=== PATIENT | male | born 1980 | race Caucasian/White ===

== ENCOUNTER 2021-03-10 18:42 | Inpatient (IN) | payer OTHER, SELFPAY ==
[2021-03-10] VITALS (13 sets, daily range): BP systolic 148–165; BP diastolic 89–98; PULSE 97–118; RESP 14–27; TEMP 36.9; O2SAT 97–100
--- NOTE | ~2021-03-10 | XR_ITS ---
EXAMINATION: XR chest 1V portable DATE: 03/13/2021 15:36 INDICATION: Shortness of breath. TECHNIQUE: A single frontal view of the chest was obtained. COMPARISON: Chest 2 views 03/10/2021, CT abdomen and pelvis 03/10/2021 FINDINGS: The chest demonstrates clear lungs without pneumonia, pleural effusion, or pneumothorax. Th e heart size is normal. There is instrumentation of left scapula and proximal left humerus. IMPRESSION: 1. No acute cardiopulmonary disease. Reviewed, dictated and finalized at location A.
--- NOTE | ~2021-03-10 | CT_ITS ---
EXAMINATION: CT brain wo con INDICATION: Altered mental status COMPARISON: None TECHNIQUE: Standard unenhanced head CT. The dose-length product (DLP) was 681.00 mGy-cm. The mA was a djusted according to patient size. Iterative reconstruction technique was employed. FINDINGS: There is no intracranial hemorrhage, acute infarction, or abnormal mass lesion. The ventric les are normal. There is no abnormal mass effect or midline shift. The lee-white matter differentiat ion is normal. The basal cisterns are patent. The orbits are normal. There is mild mucosal thickening of the paranasal sinuses. IMPRESSION: 1. No acute intracranial abnormality. Reviewed, dictated and finalized at location B.
--- NOTE | ~2021-03-10 | XR_ITS ---
EXAMINATION: XR chest 2V EXAM DATE: 03/10/2021 19:37 INDICATION: Shortness of breath. History CHF. TECHNIQUE: Frontal and lateral projections of the chest obtained and reviewed. There is no prior paty dy for comparison. FINDINGS: The lungs are clear. There are no pleural effusions. The cardiomediastinal silhouette is within normal limits. There is no pneumothorax suspected. Plate which appears to bridge the scapula and humeral head. There is no significant interval change. IMPRESSION: No acute cardiopulmonary findings. Reviewed, dictated and finalized at location A.
--- NOTE | ~2021-03-10 | US_ITS ---
EXAMINATION: US right upper quadrant DATE: 03/13/2021 11:38 INDICATION: Abnormal liver function tests. Acute pancreatitis. TECHNIQUE: Multiple grayscale and Doppler ultrasound images of the abdomen were obtained. COMPARISON: CT abdomen and pelvis 03/10/2021 FINDINGS: The body of the pancreas is hypoechoic, consistent with acute pancreatitis. There is diffus e hepatic steatosis. There is flow in main portal vein. The gallbladder is absent. The common duct is normal and measures 4 mm. IMPRESSION: 1. Acute interstitial pancreatitis. 2. Diffuse hepatic steatosis. Reviewed, dictated and finalized at location A.
--- NOTE | ~2021-03-10 | CT_ITS ---
EXAMINATION: CT abdomen pelvis w con EXAM DATE: 03/10/2021 22:20 INDICATION: left side abdominal pain. TECHNIQUE: Spiral CT of the abdomen and pelvis was performed following intravenous injection of 100 m L Omnipaque 350. Axial, coronal and sagittal images of the abdomen and pelvis were reviewed. The do se-length product (DLP) for this examination was 1620.53 mGy-cm. The exposure was tailored according to patient size (auto mA exposure control), and iterative reconstruction (ASIR) was used as addition al dose reduction technique. There is no prior study for comparison. FINDINGS: There is moderate amount of fat stranding surrounding the pancreas, probably acute uncompli cated pancreatitis. There is hepatic steatosis. Spleen is normal in size. Adrenal glands are unremark able. There are cholecystectomy clips. Portal and splenic veins are patent. Kidneys enhance symmet rically. There is no hydronephrosis. The prostate is unremarkable. The bladder is unremarkable. There is no retroperitoneal or pelvic lymphadenopathy. Small umbilical hernia containing nonobstruc tripp small bowel. Small bilateral inguinal fat-containing hernias. There are no findings to suggest appendicitis. There is mild sigmoid colonic diverticulosis. There i s no adjacent inflammatory change to suggest diverticulitis. There are surgical changes from intact g astric bypass surgery. There is expected amount of colonic stool. No free intraperitoneal gas. T he heart is normal in size. There are no pericardial or pleural effusions. The lung bases are unrem arkable. There are no osteoblastic or osteolytic lesions identified. IMPRESSION: 1. Acute uncomplicated pancreatitis. 2. Hepatic steatosis. 3. Small hernias. Reviewed, dictated and finalized at location A.
--- NOTE | 2021-03-10 18:45 | ECG_ITS ---
Measurements Intervals [place] Rate: 110 P: 32 OK: 124 QRS: 26 QRSD: 110 T: 10 QT: 334 QTc: 453 Interpretive Statements SINUS TACHYCARDIA FREQUENT ATRIAL PREMATURE COMPLEXES BORDERLINE ST-T WAVE ABNORMALITY- INFERIOR LEADS BASELINE WANDER- AVR, V1-V6 ABNORMAL ECG Electronically Signed On 03-10-2021 19:54:28 CDT by Justice Ross D.O.
[2021-03-10 19:26] LABS: Basophils Absolute Auto 0.1 K/mm3 (0.0-0.1); Eosinophils Percent Auto 0.6 % (0-4.4); Hematocrit 36.6 % (42.0-52.0); Hemoglobin 10.4 g/dL (14.0-18.0); Immature Granulocyte Absolute 0.04 K/mm3 (0.00-0.031); Immature Granulocyte Percent A 0.6 % (0-0.5); Lymphocytes Absolute Auto 2.88 K/mm3 (0.9-3.2); Lymphocytes Percent Auto 41.2 % (18.3-44.2); Mean Corpuscular HGB Conc 28.4 g/dl (32-36); Mean Corpuscular Hemoglobin 20.9 pg (26-34); Mean Corpuscular Volume 73.5 fl (80-100); Monocytes Absolute Auto 0.5 K/mm3 (0.1-0.6); Monocytes Percent Auto 7.2 % (2.6-8.5); Neutrophils Absolute Auto 3.5 K/mm3 (1.3-6.7); Neutrophils Percent Auto 49.4 % (45.5-73.1); Platelet Count Result 324 k/mm3 (150-375); Red Blood Count 4.98 M/mm3 (4.6-6.20); Red Cell Distribution Width 17.7 % (11.5-14.5)
[2021-03-10 19:38] LABS: Ethanol 153 mg/dL (<10); Prothrombin Time 13.3 Seconds (11.1-14.7)
[2021-03-10 19:40] LABS: Anion Gap 19 mmol/L (8-16); Blood Urea Nitrogen 6 mg/dL (9-20); Calcium 9.5 mg/dL (8.4-10.2); Carbon Dioxide 18 mmol/L (22-30); Chloride 103 mmol/L (98-107); Estimated CRCL calculation 135 ml/min; Estimated Glomerular Filt Rate > 60; Glucose 233 mg/dL (75-110); Potassium 3.9 mmol/L (3.4-5.0); Sodium 140 mmol/L (137-145)
[2021-03-10 19:41] LABS: Partial Thromboplastin Time 22.6 SECONDS (22.3-36.8)
[2021-03-10 19:51] LABS: Anisocytosis 1+ (NORMAL); Hypochromasia 1+ (NORMAL); Platelet Estimate Adequate (Adequate)
[2021-03-10 19:52] LABS: Lipase 5568 U/L (23-300); NT Pro B Type Natriuretic Pept 19 pg/mL (5-100); Ovalocytes 1+ (NORMAL); Stomatocytes 1+ (NORMAL); Troponin I < 0.012 ng/mL (0.000-0.034)
[2021-03-10 22:02] LABS: Add Urine Microscopic? YES; Appearance Urine Clear (Clear); Bilirubin Urine Negative (Negative); Blood Urine Negative (Negative); Color Urine Straw (Yellow); Glucose Urine UA 3+ mg/dL (Negative); Ketones Urine 1+ mg/dL (Negative); Leukocyte Esterase Ur Negative LEU/UL (Negative); Mucus Urine Rare /lpf; Nitrate Urine Negative (Negative); Protein Urine 1+ mg/dL (Negative); RBC Urine 0-2 /hpf (0-2); Specific Grav Ur 1.018 (1.001-1.035); Urobilinogen Urine Negative mg/dL (<2.0); WBC Urine 0-3 /hpf
[2021-03-10] MEDS: ONDANSETRON INJ 4 MG/2 ML VIAL IV PUSH (22:06)
[2021-03-10] MEDS: HYDROmorphone HCL INJ (*CRX) 1 MG/ML SYR IV PUSH ×2 (22:07→23:27)
[2021-03-10] MEDS: LACTATED RINGERS 1,000 ML 999 ML IV CONT ×2 (22:10→23:43)
--- NOTE | 2021-03-10 22:10 | ED.ABDPAIN ---
HPI - Abdominal Pain General Chief Complaint: Abdominal Pain Stated Complaint: ABD PAIN, SOB Time Seen by Provider: 03/10/21 21:46 Source: patient and RN notes reviewed Mode of arrival: ambulatory Limitations: no limitations History of Present Illness HPI narrative: This is a 41 year old male with history of alcohol abuse, hypertension, and pancreatitis who presents for evaluation of abdominal pain with nausea and vomiting. Patient states he has been having nausea, vomiting and diarrhea for 2 days. He developed left upper abdominal that radiates to his left lower abdominal 8 hours ago. This pain has been constant. He denies fever, chills, chest pain, or sob. He reports he normally drinks 1/2 pint rum daily and he last drank 8 hours ago. He denies history of alcohol withdrawal. Related Data Home Medications Medication Instructions Recorded Confirmed amlodipine 5 mg PO DAILY 03/10/21 03/11/21 losartan 50 mg PO DAILY 03/10/21 03/11/21 metoprolol succinate 50 mg PO DAILY 03/10/21 03/11/21 Allergies Allergy/AdvReac Type Severity Reaction Status Date / Time aspirin Allergy Unknown Verified 03/10/21 20:51 Review of Systems Review of Systems: All systems reviewed & are unremarkable except as noted in HPI and below PMFSH Past Medical History Medical History (Updated 03/11/21 @ 06:18 by Huma Mckeon MD) Alcohol abuse CHF (congestive heart failure) Chronic pancreatitis due to chronic alcoholism COVID-19 vaccine series completed (~10/2020) Essential hypertension Kidney stones Obesity Obstructive sleep apnea on CPAP Opioid abuse Surgical History Surgical History (Updated 03/11/21 @ 02:51 by Regine Corbin DO) History of cholecystectomy History of gastric bypass (~2010) History of hernia repair History of shoulder surgery Family History Family History (Updated 03/11/21 @ 03:57 by Regine Corbin DO) Unknown Unknown family medical history He reports that his parents and all of his siblings are healthy without medical problems. Social History Social History (Updated 03/11/21 @ 04:01 by Regine Corbin DO) Social History: Primary care physician: Dr. Makenzie Hines Smoking status: Never smoker Alcohol intake: current Alcohol use details: 2 pints of alcohol a day. Substance use: current Substance use type: marijuana, opiates and painkillers Last use: He has not used opiates in several years. Additional living arrangements comments: He lives in [place] with his of 17 years . He reports that his is a nurse at [employer]. They have 3 children 2 17-year-old twin boys and a 3-year-old daughter. Additional occupation/education comments: He reports that he is on disability following a shoulder injury. Gender identity (if verbalized by the patient): Male Spiritual care concerns: No Exam Const: General: alert Orientation/consciousness: patient oriented x3 Other: appears to be in pain Eyes: EOM: EOMs intact bilaterally Resp: Effort & Inspection: normal respiratory effort and no retractions Auscultation: clear to auscultation bilaterally Cardio: Rate: regular rate Rhythm: regular rhythm Heart sounds: no murmurs GI: GI Palp: Yes Soft to palpation, Yes Tenderness to palpation present (GI) (LUQ, epigastric), Yes Guarding due to palpation present (GI) and No Rigid due to palpation Auscultation: normal bowel sounds Skin: General skin exam: normal color Rashes: no rashes Neuro: General: patient oriented x3, moves all extremities and CN's II-XI intact bilaterally Psych: Mental Status: mental status grossly normal Affect: normal affect Course Consultations Consultation #1: I spoke with Dr. corbin about patient and labs. She accepts patient to IMU given lactic acid 8.5. I Will order 2 more liters of IVFs. Date: 03/10/21 Time: 23:35 Vital Signs Vital signs: Vital Signs Temperature 98.5 F 03/10/21 18:57 Pulse Rat
[2021-03-10 22:48] LABS: Glucose Point of Care 236 mg/dl (65-105)
[2021-03-10 23:26] LABS: Alanine Aminotransferase 39 U/L (4-50); Albumin Level 4.6 g/dL (3.5-5.1); Alkaline Phosphatase 111 U/L (38-126); Aspartate Amino Transferase 47 U/L (17-59); Bilirubin,Total 0.4 mg/dL (0.2-1.3)
[2021-03-10 23:34] LABS: Lactic Acid Reflex 8.5 mmol/L (0.7-2.1)
[2021-03-11] VITALS (21 sets, daily range): BP systolic 158–200; BP diastolic 92–116; PULSE 83–126; RESP 12–24; TEMP 36.4–37.4; O2SAT 94–100; BMI 46.8; BMI 47.2
--- NOTE | 2021-03-11 01:02 | PC.NURSE ---
spoke with pt , reports pt was addicted to opioids in the past and that he has been drinking recently. reports he had rehab for opioid addiction and is fine now.
[2021-03-11 01:26] LABS: Lactate Dehydrogenase 714 U/L (313-618)
[2021-03-11] MEDS: SODIUM CHLORIDE 0.9% IV 1,000 ML 200 ML IV CONT ×4 (01:27→20:32)
[2021-03-11] MEDS: SODIUM CHLORIDE 0.9% IV 1,000 ML 999 ML IV CONT ×2 (01:27)
[2021-03-11 02:10] LABS: Reflex Lactic Acid Yes or No Add Lactic
--- NOTE | 2021-03-11 02:22 | PM.IMHP ---
H&P: HPI History of Present Illness Date/Time: 03/11/21 02:22 Chief Complaint: abdominal pain Narrative: 41-year-old with past medical history of obesity, chronic alcohol abuse, narcotic abuse, essential hypertension, and chronic pancreatitis who presented to the ER with abdominal pain. The patient initially told the ER staff that he drank a half a pt of alcohol a day and his last drink was 8 hours prior to coming to the ER. He told nursing staff that he had quit drinking a long time ago. When nursing staff point out to the patient that his alcohol level is currently above the legal limit for intoxication the patient admitted that he drank a couple of hours prior to coming to the ER and that he drinks about 2 pt of alcohol a day. The patient's reports that the patient will usually drink 2- 12 packs of beer a day but has been on hard liquor for the most part for the last year. She agrees that he probably drinks about 2 pt of alcohol a day on average but over the last 5 days the patient has been binge drinking up to 2 fifths of hard liquor a day as he is anticipating getting a shot from chest not to help him stop drinking alcohol. So he wanted to drink as much as he possibly could before the injection on 03/12/2021. The patient states that he has been having diarrhea for the last 2-3 days 5-6 episodes a day. The diarrhea is liquid and brown. Denies any hematochezia or melena. He has been having nausea and vomiting for 2 days with dry heaves over the last 24 hours. His nausea is accompanied by epigastric abdominal pain that radiates down the left side of his abdomen into his groin. His pain also radiates out through to his back. He reports the pain is a 10/10 in intensity and aching even after Dilaudid. He reports that he is drank 2 pt of alcohol a day for the last year. Prior to that he drank beer heavily. He is considered himself an alcoholic for the last 2 years. Since he started drinking alcohol again he has regained all of his weight from prior to his bariatric surgery. He reports that he is supposed to go to chest not on 03/12/2021 for the shot to treat his alcohol addiction. He reports that he has never went to alcohol withdrawal. At the time of my evaluation the patient's CIWA scores 5 he is has palpable tremor but no visible tremor, he has some mild sweating, he feels mildly anxious and is having some nausea. he was having some sweats earlier in the day that he associates with his pain. He denies any fevers or chills. He denies any headache or visual changes. He has not had any auditory or visual hallucinations or tactile hallucinations. He has had some shortness of breath but he associates this with his abdominal pain is in makes his pain worse if he takes a deeper breath. He has a history of CHF that was due to Adderall abuse several years ago. He was on medications for CHF for about 6 months but once he quit using the Adderall his repeat echo had normalized and his CHF medications were discontinued. His reports that the patient initially had an Adderall addiction in approximately 2007. Once he got off of the Adderall he began gaining weight and became obese. He then had gastric bypass procedure. He initially the lost down to 160 lb. After year so he had gained back to a more healthy weight. He then developed an opioid addiction after shoulder injury. He gained some weight with the opioid addiction. He then switched to Adderall again. He then developed CHF with his amphetamine use. He eventually stop the amphetamine use and then developed and alcohol addiction. The patient is seeking help for his alcohol addiction as his has told him that she cannot continue to live like this in that something has to change. Review of Systems Review of Systems: Narrative: 12 systems were reviewed with pertinent positives and negatives per HPI. Except as documented in the HPI, all other systems were reviewed and are negative.
[2021-03-11] MEDS: METOPROLOL TARTRATE INJ 5 MG/5 ML VIAL IV PUSH ×4 (03:48→20:33)
[2021-03-11 03:54] LABS: Basophils Absolute Auto 0.1 K/mm3 (0.0-0.1); Basophils Percent Auto 0.5 % (0.2-1.2); Hematocrit 39.6 % (42.0-52.0); Immature Granulocyte Absolute 0.07 K/mm3 (0.00-0.031); Immature Granulocyte Percent A 0.5 % (0-0.5); Lymphocytes Percent Auto 4.2 % (18.3-44.2); Mean Corpuscular HGB Conc 27.8 g/dl (32-36); Mean Corpuscular Hemoglobin 20.8 pg (26-34); Mean Corpuscular Volume 74.9 fl (80-100); Mean Platelet Volume 9.7 fl (7.4-10.4); Monocytes Absolute Auto 0.6 K/mm3 (0.1-0.6); Monocytes Percent Auto 3.8 % (2.6-8.5); Neutrophils Absolute Auto 13.1 K/mm3 (1.3-6.7); Platelet Count Result 309 k/mm3 (150-375); Red Blood Count 5.29 M/mm3 (4.6-6.20); Red Cell Distribution Width 18.1 % (11.5-14.5); White Blood Count 14.4 K/mm3 (4.5-10.0)
[2021-03-11] MEDS: HYDROmorphone HCL INJ (*CRX) 1 MG/ML SYR IV PUSH (04:01)
[2021-03-11 04:11] LABS: Lactic Acid 8.2 mmol/L (0.7-2.1)
[2021-03-11 04:12] LABS: Alanine Aminotransferase 49 U/L (4-50); Albumin Level 4.4 g/dL (3.5-5.1); Alkaline Phosphatase 107 U/L (38-126); Anion Gap 20 mmol/L (8-16); Aspartate Amino Transferase 49 U/L (17-59); Bilirubin,Total 0.6 mg/dL (0.2-1.3); Blood Urea Nitrogen 6 mg/dL (9-20); Calcium 9.4 mg/dL (8.4-10.2); Carbon Dioxide 17 mmol/L (22-30); Chloride 103 mmol/L (98-107); Estimated CRCL calculation 152 ml/min; Estimated Glomerular Filt Rate > 60; Glucose 255 mg/dL (75-110); Magnesium 1.3 mg/dL (1.6-2.3); Phosphorus 3.7 mg/dL (2.5-4.5); Potassium 4.3 mmol/L (3.4-5.0); Sodium 140 mmol/L (137-145)
[2021-03-11 04:20] LABS: Anisocytosis 1+ (NORMAL); Hypochromasia 1+ (NORMAL); Platelet Estimate Adequate (Adequate)
[2021-03-11 04:31] LABS: Hemoglobin A1C 6.8 % (<5.7)
[2021-03-11 05:06] LABS: Folic Acid 4.6 ng/mL (2.76->20)
[2021-03-11 06:01] LABS: Lactic Acid Reflex 6.4 mmol/L (0.7-2.1)
[2021-03-11] MEDS: MAGNESIUM SULF 4 GM/WATER100ML 4 GM/100 ML BAG IVPB (06:14)
[2021-03-11] MEDS: THIAMINE HCL 200 MG/2 ML VIAL 100 MG IV PUSH ×2 (06:16→08:22)
[2021-03-11] MEDS: INSULIN ASPART (*BKC) 100 UNITS/ML SUB-Q ×2 (06:17→12:16)
[2021-03-11 06:24] LABS: Glucose Point of Care 221 mg/dl (65-105)
[2021-03-11 06:34] LABS: Lipase 4267 U/L (23-300)
--- NOTE | 2021-03-11 06:41 | ADMGEN ---
This patient, Fabian Hernandez, was admitted to IMU Room 209-01. Patient/family oriented to hospital policies and general routines including ID bracelet, bed and alarms, visiting hours, pain management, procedures, bathroom and other care routines, personal items, smoking policy, room service/diet, and visiting hours. Information on how to activate the Rapid Response Team has been discussed. Patient/Family are encouraged to report perceived risks to care and to ask questions if they do not understand what they are told or what they should do. report from maddie
[2021-03-11] MEDS: ENOXAPARIN 40 MG/0.4 ML SYRINGE SUB-Q (08:21)
[2021-03-11] MEDS: PANTOPRAZOLE SODIUM IV 40 MG VIAL IV PUSH ×2 (08:22→20:33)
[2021-03-11] MEDS: HYDROmorphone HCL INJ (*CRX) 1 MG/ML SYR 2 MG IV PUSH ×3 (08:23→20:34)
[2021-03-11] MEDS: ONDANSETRON INJ 4 MG/2 ML VIAL IV PUSH ×2 (11:50→20:33)
--- NOTE | 2021-03-11 11:51 | PM.IMPN ---
Progress Note: A&P Assessment and Plan (1) Acute alcoholic pancreatitis: Code(s): K85.20 - Alcohol induced acute pancreatitis without necrosis or infection Status: Acute (2) SIRS (systemic inflammatory response syndrome): Code(s): R65.10 - Systemic inflammatory response syndrome (SIRS) of non-infectious origin without acute organ dysfunction Status: Acute (3) Lactic acidosis: Code(s): E87.2 - Acidosis Status: Acute (4) Acute hyperglycemia: Code(s): R73.9 - Hyperglycemia, unspecified Status: Acute (5) Essential hypertension: Code(s): I10 - Essential (primary) hypertension Status: Acute (6) Chronic alcohol abuse: Code(s): F10.10 - Alcohol abuse, uncomplicated Status: Acute (7) Obstructive sleep apnea: Code(s): G47.33 - Obstructive sleep apnea (adult) (pediatric) Status: Acute Additional Plan acute alcoholic pancreatitis SIRS Severe lactic acidosis Hyperglycemia Hypertension BETTIE on CPAP Hypo magnesemia status post gastric bypass 2010 Chronic alcohol abuse planning to go [place] [facility] plan: Continue aggressive IV hydration Replace lytes Recheck lactic acid level And sliding scale insulin for hyperglycemia WBC count slightly elevated today watch for any fever if worsens may need IV antibiotics NPO except ice chips Labs in a.m. Subjective Date/time seen: 03/11/21 11:51 Interval history: feels is still sore in his upper abdomen, nauseated, no fever chills. Urinating okay still have some diarrhea Review of Systems Review of Systems: Narrative: - CONSTITUTIONAL: Denies weight loss, fever and chills. - HEENT: Denies changes in vision and hearing - RESPIRATORY: Denies SOB and cough. - CV: Denies palpitations and CP. - GI: reports abdominal pain, nausea, vomiting and diarrhea. - : Denies dysuria and urinary frequency. - MSK: Denies myalgia and joint pain. - SKIN: Denies rash and pruritus. - NEUROLOGICAL: Denies headache and syncope. - PSYCHIATRIC: Denies recent changes in mood. Denies anxiety and depression. All systems reviewed & are unremarkable except as noted in HPI and below Exam Narrative: Exam Narrative: General: obese, not in acute distress HEENT: mucous membranes are moist Respiratory: decreased breath sounds at the bases, no increased work of breathing Cardiovascular: sinus tachycardia, 2+ bilateral radial pedal pulses, no murmur, no JVD Gastrointestinal: epigastric and left upper quadrant abdominal tenderness, distended, obese, positive bowel sounds, no rebound Skin: generalized pallor, no rash Musculoskeletal: no clubbing, cyanosis or edema, limited range of motion of the left shoulder Neurological: alert and oriented, speech is clear, no facial asymmetry, no localizing neurologic deficits noted on limited exam Psychiatric: anxious, otherwise pleasant and cooperative : deferred Hematologic/lymphatic: no petechiae, no bruising, no anterior cervical or submandibular lymphadenopathy Objective Data Vital Signs Vital Signs: Vital Signs - 24 hr 03/10/21 18:57 03/10/21 20:26 03/10/21 20:48 Temperature 98.5 F Pulse Rate 111 H 98 98 Respiratory Rate 18 22 H 21 H Blood Pressure 148/90 H 148/89 H Pulse Oximetry 97 99 99 03/10/21 21:00 03/10/21 21:01 03/10/21 21:15 Temperature Pulse Rate 97 100 111 H Respiratory Rate 19 14 25 H Blood Pressure 157/95 H Pulse Oximetry 99 100 99 03/10/21 21:30 03/10/21 21:31 03/10/21 22:28 Temperature Pulse Rate 109 H 111 H 113 H Respiratory Rate 19 24 H 24 H Blood Pressure 150/98 H 165/90 H Pulse Oximetry 98 97 100 03/10/21 22:30 03/10/21 22:45 03/10/21 23:00 Temperature Pulse Rate 111 H 114 H 118 H Respiratory Rate 23 H 27 H 24 H Blood Pressure Pulse Oximetry 98 100 100 03/10/21 23:01 03/11/21 00:57 03/11/21 02:00 Temperature 97.8 F Pulse Rate 117 H 118 H 117 H Respiratory Rate 26 H 2
[2021-03-11] MEDS: hydrALAZINE HCL 20 MG/ML VIAL 10 MG IV PUSH (12:10)
[2021-03-11 12:32] LABS: Glucose Point of Care 216 mg/dl (65-105)
[2021-03-11 13:27] LABS: Lactic Acid Reflex 4.5 mmol/L (0.7-2.1)
[2021-03-11 15:56] LABS: Reflex Lactic Acid Yes or No Add Lactic
[2021-03-11 17:06] LABS: Lactic Acid 3.9 mmol/L (0.7-2.1)
[2021-03-11 17:11] LABS: Glucose Point of Care 172 mg/dl (65-105)
[2021-03-11 23:59] LABS: Glucose Point of Care 146 mg/dl (65-105)
[2021-03-12] VITALS (23 sets, daily range): BP systolic 138–193; BP diastolic 71–89; PULSE 82–174; RESP 17–20; TEMP 36.8–37.7; O2SAT 93–100
[2021-03-12] MEDS: hydrALAZINE HCL 20 MG/ML VIAL 10 MG IV PUSH ×3 (01:12→15:33)
[2021-03-12] MEDS: SODIUM CHLORIDE 0.9% IV 1,000 ML 200 ML IV CONT ×2 (01:12→08:17)
[2021-03-12] MEDS: METOPROLOL TARTRATE INJ 5 MG/5 ML VIAL IV PUSH ×4 (03:35→21:33)
[2021-03-12] MEDS: HYDROmorphone HCL INJ (*CRX) 1 MG/ML SYR 2 MG IV PUSH ×5 (03:41→22:48)
[2021-03-12 05:33] LABS: Hematocrit 34.8 % (42.0-52.0); Hemoglobin 9.9 g/dL (14.0-18.0); Mean Corpuscular HGB Conc 28.4 g/dl (32-36); Mean Corpuscular Hemoglobin 21.2 pg (26-34); Mean Corpuscular Volume 74.7 fl (80-100); Mean Platelet Volume 10.4 fl (7.4-10.4); Platelet Count Result 276 k/mm3 (150-375); Red Blood Count 4.66 M/mm3 (4.6-6.20); Red Cell Distribution Width 17.8 % (11.5-14.5); White Blood Count 13.9 K/mm3 (4.5-10.0)
[2021-03-12 05:42] LABS: Alanine Aminotransferase 48 U/L (4-50); Albumin Level 3.7 g/dL (3.5-5.1); Alkaline Phosphatase 104 U/L (38-126); Anion Gap 9 mmol/L (8-16); Aspartate Amino Transferase 105 U/L (17-59); Bilirubin,Total 0.9 mg/dL (0.2-1.3); Blood Urea Nitrogen 7 mg/dL (9-20); Calcium 8.9 mg/dL (8.4-10.2); Carbon Dioxide 24 mmol/L (22-30); Chloride 102 mmol/L (98-107); Estimated CRCL calculation 152 ml/min; Estimated Glomerular Filt Rate > 60; Glucose 137 mg/dL (75-110); Potassium 3.7 mmol/L (3.4-5.0); Sodium 135 mmol/L (137-145)
[2021-03-12 05:46] LABS: Alveolar/Arterial O2 Gradient 30.6 mmHg; Base Excess ABG -0.3 mEq/l (+/-2.0); Fractional Inspired Oxygen 21 %; HCO3 ABG 23.6 mEq/l (22.0-26.0); Oxygen Content ABG 15.2 %vol (16.0-22.0); Oxygen Saturation ABG 95.7 % (95.0-100.0); Oxyhemoglobin 94.5 % THb (90.0-100.0); PO2 FiO2 Ratio Arterial Blood 3.62 %; Total Hemoglobin 11.4 g/dL (12.0-18.0); pH ABG 7.435 (7.350-7.450)
[2021-03-12 05:47] LABS: Device ROOM AIR; Modified Allen's Test Pass; Site Drawn RIGHT RADIAL
[2021-03-12 06:00] LABS: CRP 18.2 mg/dL (<1.0)
[2021-03-12 06:58] LABS: Lactic Acid Reflex 1.3 mmol/L (0.7-2.1)
[2021-03-12] MEDS: PANTOPRAZOLE SODIUM IV 40 MG VIAL IV PUSH ×2 (08:11→21:24)
[2021-03-12] MEDS: ENOXAPARIN 40 MG/0.4 ML SYRINGE SUB-Q (08:11)
[2021-03-12] MEDS: THIAMINE HCL 200 MG/2 ML VIAL 100 MG IV PUSH (08:11)
--- NOTE | 2021-03-12 10:42 | ECG_ITS ---
Measurements Intervals [place] Rate: 131 P: 47 LA: 139 QRS: 53 QRSD: 101 T: -1 QT: 308 QTc: 455 Interpretive Statements SINUS TACHYCARDIA FREQUENT ATRIAL PREMATURE COMPLEXES DELAYED PRECORDIAL R/S TRANSITION NONSPECIFIC ST & T-WAVE ABNORMALITY- INFERIOR LEADS BASELINE ARTIFACT- I, II, III, AVR, AVL, AVF, V1 ABNORMAL ECG Electronically Signed On 03-12-2021 12:04:21 CDT by Justice Ross D.O.
--- NOTE | 2021-03-12 10:44 | PM.IMPN ---
Progress Note: A&P Assessment and Plan (1) Acute alcoholic pancreatitis: Code(s): K85.20 - Alcohol induced acute pancreatitis without necrosis or infection Status: Acute (2) SIRS (systemic inflammatory response syndrome): Code(s): R65.10 - Systemic inflammatory response syndrome (SIRS) of non-infectious origin without acute organ dysfunction Status: Acute (3) Lactic acidosis: Code(s): E87.2 - Acidosis Status: Acute (4) Acute hyperglycemia: Code(s): R73.9 - Hyperglycemia, unspecified Status: Acute (5) Essential hypertension: Code(s): I10 - Essential (primary) hypertension Status: Acute (6) Chronic alcohol abuse: Code(s): F10.10 - Alcohol abuse, uncomplicated Status: Acute (7) Obstructive sleep apnea: Code(s): G47.33 - Obstructive sleep apnea (adult) (pediatric) Status: Acute Additional Plan acute alcoholic pancreatitis SIRS Severe lactic acidosis Hyperglycemia Hypertension BETTIE on CPAP Hypo magnesemia status post gastric bypass 2010 Chronic alcohol abuse planning to go [place] for [facility] plan: Continue aggressive IV hydration Replace lytes Recheck lactic acid level And sliding scale insulin for hyperglycemia WBC count slightly elevated today watch for any fever if worsens may need IV antibiotics NPO except ice chips Labs in a.m. 03/12: Lactic acid has normalized his however tachycardic in 140s to 150s will get an EKG looks sinus tachycardia on telemetry. Will restart his oral metoprolol. Blood pressure running high will start his amlodipine back. Continue NPO except meds may have ice chips . He is febrile this morning. Could be from acute pancreatitis self however will monitor his cultures empirically started On imipenem. With hemoglobin A1c 6.8 suggestive of diabetes mellitus. WBC count stable today blood sugar running at goal more IV fluid to 150 cc an hour no edema noted and no crackles in lung examination her signs of any fluid overload replace magnesium labs in a.m. Subjective Date/time seen: 03/12/21 10:44 Interval history: overnight has been tachycardic which lowers with IV metoprolol. He feels his abdomen is still sore. Did not tolerate his CPAP at night. Oxygenation reported to be floor with his old machine. He did well with the in house unit here Review of Systems Review of Systems: All systems reviewed & are unremarkable except as noted in HPI and below Exam Narrative: Exam Narrative: General: obese, not in acute distress HEENT: mucous membranes are moist Respiratory: decreased breath sounds at the bases, no increased work of breathing Cardiovascular: sinus tachycardia, 2+ bilateral radial pedal pulses, no murmur, no JVD Gastrointestinal: epigastric and left upper quadrant abdominal tenderness, distended, obese, positive bowel sounds, no rebound Skin: generalized pallor, no rash Musculoskeletal: no clubbing, cyanosis or edema, limited range of motion of the left shoulder Neurological: alert and oriented, speech is clear, no facial asymmetry, no localizing neurologic deficits noted on limited exam Psychiatric: anxious, otherwise pleasant and cooperative : deferred Hematologic/lymphatic: no petechiae, no bruising, no anterior cervical or submandibular lymphadenopathy Objective Data Vital Signs Vital Signs: Vital Signs - 24 hr 03/11/21 12:00 03/11/21 14:00 03/11/21 15:25 Temperature 98.4 F Pulse Rate 121 H 117 H 115 H Respiratory Rate 12 Blood Pressure 185/109 H Pulse Oximetry 95 03/11/21 16:00 03/11/21 18:00 03/11/21 20:00 Temperature 97.8 F 99.4 F Pulse Rate 105 H 114 H 108 H Respiratory Rate 16 20 Blood Pressure 158/103 H 173/96 H Pulse Oximetry 95 98 03/11/21 20:33 03/11/21 22:00 03/11/21 23:50 Temperature Pulse Rate 120 H 104 H 111 H Respiratory Rate Blood Pressure Pulse Oximetry 96 03/11/21 23:52 03/12/21 00:00 03/12
[2021-03-12 11:25] LABS: Lipase 888 U/L (23-300)
[2021-03-12 12:09] LABS: Glucose Point of Care 153 mg/dl (65-105)
[2021-03-12] MEDS: METOPROLOL SUCCINATE EXT REL 50 MG TABCR PO (13:22)
[2021-03-12] MEDS: MAGNESIUM SULF 2 GM/WATER 50ML 2 GM/50 ML BAG IVPB (13:22)
[2021-03-12 13:54] LABS: Amphetamine Screen Urine Negative (Negative); Barbiturate Screen Urine Negative (Negative); Benzodiazepines Screen Urine Positive (Negative); Cannabinoid Screen Urine Positive (Negative); Cocaine Screen Urine Negative (Negative); Methadone Screen Urine Negative (Negative); Opiate Screen Urine Positive (Negative); Phencyclidine Screen Urine Negative (Negative)
[2021-03-12] MEDS: SODIUM CHLORIDE 0.9% IV 1,000 ML 150 ML IV CONT ×2 (15:23→21:27)
[2021-03-12 17:14] LABS: Glucose Point of Care 136 mg/dl (65-105)
[2021-03-13] VITALS (19 sets, daily range): BP systolic 142–170; BP diastolic 81–97; PULSE 101–130; RESP 17–24; TEMP 35.9–37.4; O2SAT 89–99
[2021-03-13] MEDS: SODIUM CHLORIDE 0.9% IV 1,000 ML 150 ML IV CONT (04:42)
[2021-03-13] MEDS: HYDROmorphone HCL INJ (*CRX) 1 MG/ML SYR 2 MG IV PUSH ×5 (04:47→20:37)
[2021-03-13 05:38] LABS: Alanine Aminotransferase 169 U/L (4-50); Albumin Level 3.4 g/dL (3.5-5.1); Alkaline Phosphatase 140 U/L (38-126); Anion Gap 9 mmol/L (8-16); Aspartate Amino Transferase 346 U/L (17-59); Bilirubin,Total 1.2 mg/dL (0.2-1.3); Blood Urea Nitrogen 6 mg/dL (9-20); Calcium 8.4 mg/dL (8.4-10.2); Carbon Dioxide 23 mmol/L (22-30); Chloride 102 mmol/L (98-107); Estimated CRCL calculation 152 ml/min; Estimated Glomerular Filt Rate > 60; Glucose 124 mg/dL (75-110); Lipase 254 U/L (23-300); Potassium 3.6 mmol/L (3.4-5.0); Sodium 134 mmol/L (137-145)
[2021-03-13] MEDS: amLODIPine BESYLATE 5 MG TABLET PO (08:38)
[2021-03-13] MEDS: METOPROLOL SUCCINATE EXT REL 50 MG TABCR PO (08:38)
[2021-03-13] MEDS: THIAMINE HCL 200 MG/2 ML VIAL 100 MG IV PUSH (08:39)
[2021-03-13] MEDS: PANTOPRAZOLE SODIUM IV 40 MG VIAL IV PUSH ×2 (08:39→20:35)
[2021-03-13] MEDS: ENOXAPARIN 40 MG/0.4 ML SYRINGE SUB-Q (08:39)
[2021-03-13 11:19] LABS: Basophils Absolute Auto 0.1 K/mm3 (0.0-0.1); Basophils Percent Auto 0.7 % (0.2-1.2); Eosinophils Percent Auto 0.4 % (0-4.4); Hematocrit 34.6 % (42.0-52.0); Hemoglobin 9.3 g/dL (14.0-18.0); Immature Granulocyte Percent A 0.9 % (0-0.5); Lymphocytes Absolute Auto 1.22 K/mm3 (0.9-3.2); Lymphocytes Percent Auto 11.4 % (18.3-44.2); Mean Corpuscular HGB Conc 26.9 g/dl (32-36); Mean Corpuscular Hemoglobin 20.9 pg (26-34); Mean Corpuscular Volume 77.6 fl (80-100); Mean Platelet Volume 10.7 fl (7.4-10.4); Monocytes Absolute Auto 0.5 K/mm3 (0.1-0.6); Monocytes Percent Auto 4.5 % (2.6-8.5); Neutrophils Absolute Auto 8.8 K/mm3 (1.3-6.7); Neutrophils Percent Auto 82.1 % (45.5-73.1); Nucleated Red Blood Cells Perc 0.2 % (0.0-0.2); Platelet Count Result 215 k/mm3 (150-375); Red Blood Count 4.46 M/mm3 (4.6-6.20); Red Cell Distribution Width 17.8 % (11.5-14.5); White Blood Count 10.7 K/mm3 (4.5-10.0)
[2021-03-13 12:15] LABS: Glucose Point of Care 102 mg/dl (65-105)
[2021-03-13] MEDS: SODIUM CHLORIDE 0.9% IV 1,000 ML 100 ML IV CONT ×2 (12:29→23:17)
[2021-03-13 12:46] LABS: Anisocytosis 1+ (NORMAL); Platelet Estimate Adequate (Adequate); Poikilocytosis 1+ (NORMAL)
--- NOTE | 2021-03-13 15:27 | PM.IMPN ---
Progress Note: A&P Assessment and Plan (1) Acute alcoholic pancreatitis: Code(s): K85.20 - Alcohol induced acute pancreatitis without necrosis or infection Status: Acute (2) SIRS (systemic inflammatory response syndrome): Code(s): R65.10 - Systemic inflammatory response syndrome (SIRS) of non-infectious origin without acute organ dysfunction Status: Acute (3) Lactic acidosis: Code(s): E87.2 - Acidosis Status: Acute (4) Acute hyperglycemia: Code(s): R73.9 - Hyperglycemia, unspecified Status: Acute (5) Essential hypertension: Code(s): I10 - Essential (primary) hypertension Status: Acute (6) Chronic alcohol abuse: Code(s): F10.10 - Alcohol abuse, uncomplicated Status: Acute (7) Obstructive sleep apnea: Code(s): G47.33 - Obstructive sleep apnea (adult) (pediatric) Status: Acute (8) Elevated liver enzymes: Code(s): R74.8 - Abnormal levels of other serum enzymes Status: Acute Additional Plan acute alcoholic pancreatitis SIRS Severe lactic acidosis Hyperglycemia Hypertension BETTIE on CPAP Hypo magnesemia status post gastric bypass 2010 Chronic alcohol abuse planning to go [employer] for [employer] plan: Continue aggressive IV hydration Replace lytes Recheck lactic acid level And sliding scale insulin for hyperglycemia WBC count slightly elevated today watch for any fever if worsens may need IV antibiotics NPO except ice chips Labs in a.m. 03/12: Lactic acid has normalized his however tachycardic in 140s to 150s will get an EKG looks sinus tachycardia on telemetry. Will restart his oral metoprolol. Blood pressure running high will start his amlodipine back. Continue NPO except meds may have ice chips . He is febrile this morning. Could be from acute pancreatitis self however will monitor his cultures empirically started On imipenem. With hemoglobin A1c 6.8 suggestive of diabetes mellitus. WBC count stable today blood sugar running at goal more IV fluid to 150 cc an hour no edema noted and no crackles in lung examination her signs of any fluid overload replace magnesium labs in a.m. 03/13: Remains tachycardic. Will increase metoprolol to 100 mg per day. Will start him on clear liquids today WBC count is improved will slow down his IV fluid to 100 cc an hour. LFTs has worsened will get ultrasound right upper quadrant to further evaluate. On imipenem empirically no further fevers Recheck his LFTs in the morning lipase level has normalized now Subjective Date/time seen: 03/13/21 15:27 Interval history: patient needed 2 L per minute oxygen bleed in he is CPAP overnight. He still states he is hurting in his abdomen but less than yesterday. He denies any nausea. no vomiting Review of Systems Review of Systems: All systems reviewed & are unremarkable except as noted in HPI and below Exam Narrative: Exam Narrative: General: obese, not in acute distress HEENT: mucous membranes are moist Respiratory: decreased breath sounds at the bases, no increased work of breathing Cardiovascular: sinus tachycardia, 2+ bilateral radial pedal pulses, no murmur, no JVD Gastrointestinal: epigastric and left upper quadrant abdominal tenderness mildly improved, distended, obese, positive bowel sounds, no rebound Skin: generalized pallor, no rash Musculoskeletal: no clubbing, cyanosis or edema, limited range of motion of the left shoulder Neurological: alert and oriented, speech is clear, no facial asymmetry, no localizing neurologic deficits noted on limited exam Psychiatric: anxious, otherwise pleasant and cooperative : deferred Hematologic/lymphatic: no petechiae, no bruising, no anterior cervical or submandibular lymphadenopathy Objective Data Vital Signs Vital Signs: Vital Signs - 24 hr 03/12/21 15:33 03/12/21 15:39 03/12/21 16:00 Temperature 98.3 F Pulse Rate 127 H 122 H 112 H Respiratory Rate 17
[2021-03-13] MEDS: METOPROLOL SUCCINATE EXT REL 25 MG TABCR PO (17:02)
[2021-03-13 18:31] LABS: Glucose Point of Care 112 mg/dl (65-105)
[2021-03-14] VITALS (13 sets, daily range): BP systolic 149–170; BP diastolic 87–97; PULSE 98–119; RESP 16–20; TEMP 35.8–36.7; O2SAT 93–99
[2021-03-14 00:26] LABS: Glucose Point of Care 133 mg/dl (65-105)
[2021-03-14] MEDS: hydrALAZINE HCL 20 MG/ML VIAL 10 MG IV PUSH (01:51)
[2021-03-14] MEDS: HYDROmorphone HCL INJ (*CRX) 1 MG/ML SYR 2 MG IV PUSH ×5 (01:52→20:24)
[2021-03-14] MEDS: ONDANSETRON INJ 4 MG/2 ML VIAL IV PUSH ×2 (04:53→11:40)
[2021-03-14 05:20] LABS: Basophils Absolute Auto 0.1 K/mm3 (0.0-0.1); Basophils Percent Auto 0.5 % (0.2-1.2); Eosinophils Absolute Auto 0.1 K/mm3 (0-0.3); Eosinophils Percent Auto 0.5 % (0-4.4); Hemoglobin 8.7 g/dL (14.0-18.0); Immature Granulocyte Absolute 0.16 K/mm3 (0.00-0.031); Immature Granulocyte Percent A 1.5 % (0-0.5); Lymphocytes Absolute Auto 1.41 K/mm3 (0.9-3.2); Lymphocytes Percent Auto 13.3 % (18.3-44.2); Mean Corpuscular HGB Conc 28.1 g/dl (32-36); Mean Corpuscular Hemoglobin 20.9 pg (26-34); Mean Corpuscular Volume 74.5 fl (80-100); Mean Platelet Volume 10.1 fl (7.4-10.4); Monocytes Absolute Auto 0.6 K/mm3 (0.1-0.6); Monocytes Percent Auto 5.6 % (2.6-8.5); Neutrophils Absolute Auto 8.4 K/mm3 (1.3-6.7); Neutrophils Percent Auto 78.6 % (45.5-73.1); Nucleated Red Blood Cells Perc 0.4 % (0.0-0.2); Platelet Count Result 227 k/mm3 (150-375); Red Blood Count 4.16 M/mm3 (4.6-6.20); Red Cell Distribution Width 17.9 % (11.5-14.5); White Blood Count 10.6 K/mm3 (4.5-10.0)
[2021-03-14 05:31] LABS: Alanine Aminotransferase 130 U/L (4-50); Albumin Level 3.5 g/dL (3.5-5.1); Alkaline Phosphatase 133 U/L (38-126); Anion Gap 8 mmol/L (8-16); Aspartate Amino Transferase 138 U/L (17-59); Bilirubin,Total 0.9 mg/dL (0.2-1.3); Blood Urea Nitrogen 5 mg/dL (9-20); Calcium 8.4 mg/dL (8.4-10.2); Carbon Dioxide 26 mmol/L (22-30); Chloride 100 mmol/L (98-107); Estimated CRCL calculation 152 ml/min; Estimated Glomerular Filt Rate > 60; Glucose 110 mg/dL (75-110); Potassium 3.2 mmol/L (3.4-5.0); Sodium 134 mmol/L (137-145)
[2021-03-14 06:45] LABS: Glucose Point of Care 100 mg/dl (65-105)
[2021-03-14] MEDS: PANTOPRAZOLE SODIUM IV 40 MG VIAL IV PUSH ×2 (08:26→20:25)
[2021-03-14] MEDS: THIAMINE HCL 200 MG/2 ML VIAL 100 MG IV PUSH (08:26)
[2021-03-14] MEDS: amLODIPine BESYLATE 5 MG TABLET PO (08:27)
[2021-03-14] MEDS: METOPROLOL SUCCINATE EXT REL 100 MG TABCR PO (08:27)
[2021-03-14] MEDS: ENOXAPARIN 40 MG/0.4 ML SYRINGE SUB-Q (08:27)
--- NOTE | 2021-03-14 11:01 | PM.IMPN ---
Progress Note: A&P Assessment and Plan (1) Acute alcoholic pancreatitis: Code(s): K85.20 - Alcohol induced acute pancreatitis without necrosis or infection Status: Acute (2) SIRS (systemic inflammatory response syndrome): Code(s): R65.10 - Systemic inflammatory response syndrome (SIRS) of non-infectious origin without acute organ dysfunction Status: Acute (3) Lactic acidosis: Code(s): E87.2 - Acidosis Status: Acute (4) Acute hyperglycemia: Code(s): R73.9 - Hyperglycemia, unspecified Status: Acute (5) Essential hypertension: Code(s): I10 - Essential (primary) hypertension Status: Acute (6) Chronic alcohol abuse: Code(s): F10.10 - Alcohol abuse, uncomplicated Status: Acute (7) Obstructive sleep apnea: Code(s): G47.33 - Obstructive sleep apnea (adult) (pediatric) Status: Acute (8) Elevated liver enzymes: Code(s): R74.8 - Abnormal levels of other serum enzymes Status: Acute Additional Plan acute alcoholic pancreatitis SIRS Severe lactic acidosis Hyperglycemia Hypertension BETTIE on CPAP Hypo magnesemia status post gastric bypass 2010 Chronic alcohol abuse planning to go [employer] for [employer] plan: Continue aggressive IV hydration Replace lytes Recheck lactic acid level And sliding scale insulin for hyperglycemia WBC count slightly elevated today watch for any fever if worsens may need IV antibiotics NPO except ice chips Labs in a.m. 03/12: Lactic acid has normalized his however tachycardic in 140s to 150s will get an EKG looks sinus tachycardia on telemetry. Will restart his oral metoprolol. Blood pressure running high will start his amlodipine back. Continue NPO except meds may have ice chips . He is febrile this morning. Could be from acute pancreatitis self however will monitor his cultures empirically started On imipenem. With hemoglobin A1c 6.8 suggestive of diabetes mellitus. WBC count stable today blood sugar running at goal more IV fluid to 150 cc an hour no edema noted and no crackles in lung examination her signs of any fluid overload replace magnesium labs in a.m. 03/13: Remains tachycardic. Will increase metoprolol to 100 mg per day. Will start him on clear liquids today WBC count is improved will slow down his IV fluid to 100 cc an hour. LFTs has worsened will get ultrasound right upper quadrant to further evaluate. On imipenem empirically no further fevers Recheck his LFTs in the morning lipase level has normalized now 03/14: Tolerated clear liquids. Will advance to full liquid today. Ultrasound right upper quadrant with acute pancreatitis. Remains afebrile. LFTs improved today. Subjective Date/time seen: 03/14/21 11:01 Interval history: No overnight events. He reports his abdominal pain is slightly better today. He tried clear liquid diet yesterday. Has ongoing mild nausea but he tolerated the liquid diet yesterday he has been ambulating to the bathroom on his own without issues. No vomiting remains afebrile Review of Systems Review of Systems: All systems reviewed & are unremarkable except as noted in HPI and below Exam Narrative: Exam Narrative: General: obese, not in acute distress HEENT: mucous membranes are moist Respiratory: decreased breath sounds at the bases, no increased work of breathing Cardiovascular: sinus tachycardia, improving 2+ bilateral radial pedal pulses, no murmur, no JVD Gastrointestinal: epigastric and left upper quadrant abdominal tenderness mildly improved, distended, obese, positive bowel sounds, no rebound Skin: generalized pallor, no rash Musculoskeletal: no clubbing, cyanosis or edema, limited range of motion of the left shoulder Neurological: alert and oriented, speech is clear, no facial asymmetry, no localizing neurologic deficits noted on limited exam Psychiatric: anxious, otherwise pleasant and cooperative : deferred Hematologic/l
[2021-03-14] MEDS: POTASSIUM CHLORIDE 20 MEQ TABLET 40 MEQ PO (11:42)
[2021-03-14] MEDS: SODIUM CHLORIDE 0.9% IV 1,000 ML 100 ML IV CONT ×2 (13:32→23:45)
[2021-03-14 22:16] LABS: Glucose Point of Care 94 mg/dl (65-105)
[2021-03-15] VITALS (17 sets, daily range): BP systolic 112–172; BP diastolic 74–92; PULSE 98–151; RESP 16–20; TEMP 35.8–36.6; O2SAT 94–98
--- NOTE | 2021-03-15 01:26 | PC.NURSE ---
This patient, Fabian Hernandez, was transferred to room 252 on 03/14/21 at 1946. Personal belongings sent with patient. Report given to Rosie Guerrero RN per day shift RN, Adonis. Appropriate documentation sent with patient.
[2021-03-15] MEDS: HYDROmorphone HCL INJ (*CRX) 1 MG/ML SYR 2 MG IV PUSH ×4 (02:06→12:30)
[2021-03-15] MEDS: hydrALAZINE HCL 20 MG/ML VIAL 10 MG IV PUSH (02:40)
[2021-03-15] MEDS: ONDANSETRON INJ 4 MG/2 ML VIAL IV PUSH (04:12)
[2021-03-15] MEDS: ENOXAPARIN 40 MG/0.4 ML SYRINGE SUB-Q (08:24)
[2021-03-15] MEDS: METOPROLOL SUCCINATE EXT REL 100 MG TABCR PO ×2 (08:24→21:09)
[2021-03-15] MEDS: PANTOPRAZOLE SODIUM IV 40 MG VIAL IV PUSH ×2 (08:24→21:10)
[2021-03-15] MEDS: THIAMINE HCL 200 MG/2 ML VIAL 100 MG IV PUSH (08:24)
[2021-03-15] MEDS: amLODIPine BESYLATE 5 MG TABLET PO (08:24)
[2021-03-15] MEDS: SODIUM CHLORIDE 0.9% IV 1,000 ML 100 ML IV CONT (11:04)
[2021-03-15 12:29] LABS: Basophils Absolute Auto 0.1 K/mm3 (0.0-0.1); Basophils Percent Auto 0.8 % (0.2-1.2); Eosinophils Absolute Auto 0.1 K/mm3 (0-0.3); Eosinophils Percent Auto 1.7 % (0-4.4); Hematocrit 29.2 % (42.0-52.0); Hemoglobin 8.2 g/dL (14.0-18.0); Immature Granulocyte Absolute 0.17 K/mm3 (0.00-0.031); Immature Granulocyte Percent A 2.1 % (0-0.5); Lymphocytes Absolute Auto 1.22 K/mm3 (0.9-3.2); Lymphocytes Percent Auto 14.8 % (18.3-44.2); Mean Corpuscular HGB Conc 28.1 g/dl (32-36); Mean Corpuscular Hemoglobin 21.1 pg (26-34); Mean Corpuscular Volume 75.1 fl (80-100); Mean Platelet Volume 9.5 fl (7.4-10.4); Monocytes Absolute Auto 0.6 K/mm3 (0.1-0.6); Neutrophils Absolute Auto 6.1 K/mm3 (1.3-6.7); Neutrophils Percent Auto 73.6 % (45.5-73.1); Nucleated Red Blood Cells Perc 0.4 % (0.0-0.2); Platelet Count Result 233 k/mm3 (150-375); Red Blood Count 3.89 M/mm3 (4.6-6.20); Red Cell Distribution Width 19.1 % (11.5-14.5); White Blood Count 8.3 K/mm3 (4.5-10.0)
[2021-03-15 12:34] LABS: Alanine Aminotransferase 98 U/L (4-50); Albumin Level 3.4 g/dL (3.5-5.1); Alkaline Phosphatase 124 U/L (38-126); Anion Gap 11 mmol/L (8-16); Aspartate Amino Transferase 74 U/L (17-59); Bilirubin,Total 0.6 mg/dL (0.2-1.3); Blood Urea Nitrogen 5 mg/dL (9-20); Calcium 8.7 mg/dL (8.4-10.2); Carbon Dioxide 23 mmol/L (22-30); Chloride 101 mmol/L (98-107); Estimated CRCL calculation 152 ml/min; Estimated Glomerular Filt Rate > 60; Glucose 93 mg/dL (65-110); Potassium 3.3 mmol/L (3.4-5.0); Sodium 135 mmol/L (137-145)
--- NOTE | 2021-03-15 14:12 | PM.IMPN ---
Progress Note: A&P Assessment and Plan (1) Acute alcoholic pancreatitis: Code(s): K85.20 - Alcohol induced acute pancreatitis without necrosis or infection Status: Acute (2) SIRS (systemic inflammatory response syndrome): Code(s): R65.10 - Systemic inflammatory response syndrome (SIRS) of non-infectious origin without acute organ dysfunction Status: Acute (3) Lactic acidosis: Code(s): E87.2 - Acidosis Status: Acute (4) Acute hyperglycemia: Code(s): R73.9 - Hyperglycemia, unspecified Status: Acute (5) Essential hypertension: Code(s): I10 - Essential (primary) hypertension Status: Acute (6) Chronic alcohol abuse: Code(s): F10.10 - Alcohol abuse, uncomplicated Status: Acute (7) Obstructive sleep apnea: Code(s): G47.33 - Obstructive sleep apnea (adult) (pediatric) Status: Acute (8) Elevated liver enzymes: Code(s): R74.8 - Abnormal levels of other serum enzymes Status: Acute Additional Plan acute alcoholic pancreatitis SIRS Severe lactic acidosis Hyperglycemia Hypertension BETTIE on CPAP Hypo magnesemia status post gastric bypass 2010 Chronic alcohol abuse planning to go [employer] for [employer] plan: Continue aggressive IV hydration Replace lytes Recheck lactic acid level And sliding scale insulin for hyperglycemia WBC count slightly elevated today watch for any fever if worsens may need IV antibiotics NPO except ice chips Labs in a.m. 03/12: Lactic acid has normalized his however tachycardic in 140s to 150s will get an EKG looks sinus tachycardia on telemetry. Will restart his oral metoprolol. Blood pressure running high will start his amlodipine back. Continue NPO except meds may have ice chips . He is febrile this morning. Could be from acute pancreatitis self however will monitor his cultures empirically started On imipenem. With hemoglobin A1c 6.8 suggestive of diabetes mellitus. WBC count stable today blood sugar running at goal more IV fluid to 150 cc an hour no edema noted and no crackles in lung examination her signs of any fluid overload replace magnesium labs in a.m. 03/13: Remains tachycardic. Will increase metoprolol to 100 mg per day. Will start him on clear liquids today WBC count is improved will slow down his IV fluid to 100 cc an hour. LFTs has worsened will get ultrasound right upper quadrant to further evaluate. On imipenem empirically no further fevers Recheck his LFTs in the morning lipase level has normalized now 03/14: Tolerated clear liquids. Will advance to full liquid today. Ultrasound right upper quadrant with acute pancreatitis. Remains afebrile. LFTs improved today. 03/15: Will advance to regular diet today. Will discontinue his IV fluids. Increase metoprolol to twice a day. Labs reviewed and LFTs has improved. Continue imipenem for until tomorrow. Remains afebrile. Replace potassium mildly tachycardic still present. Restart his losartan for his hypertension. Labs in a.m. Subjective Date/time seen: 03/15/21 14:12 Interval history: No overnight events. Feeling better today some nausea with full liquid but tolerated it okay he has been drinking without any problem. He is IV line blew and is bruised all over his arm . Abdomen is slightly sore but overall better. Review of Systems Review of Systems: All systems reviewed & are unremarkable except as noted in HPI and below Exam Narrative: Exam Narrative: General: obese, not in acute distress HEENT: mucous membranes are moist Respiratory: decreased breath sounds at the bases, no increased work of breathing Cardiovascular: sinus tachycardia, improving 2+ bilateral radial pedal pulses, no murmur, no JVD Gastrointestinal: epigastric and left upper quadrant abdominal tenderness Improved, distended, obese, positive bowel sounds, no rebound Skin: generalized pallor, no rash Musculoskeletal: no clubbing, cyan
[2021-03-15] MEDS: POTASSIUM CHLORIDE 20 MEQ TABLET 40 MEQ PO (14:21)
[2021-03-15] MEDS: LOSARTAN POTASSIUM 50 MG TABLET PO (15:38)
[2021-03-15] MEDS: HYDROcodone/acetaminophen (*CRX) 5-325 MG TABLET 1 TAB PO (17:24)
[2021-03-15] MEDS: HYDROmorphone HCL INJ (*CRX) 2 MG/ML VIAL IV PUSH (20:41)
[2021-03-16] VITALS (17 sets, daily range): BP systolic 155–185; BP diastolic 60–104; PULSE 97–112; RESP 16–20; TEMP 36.3–36.8; O2SAT 96–100
[2021-03-16] MEDS: HYDROcodone/acetaminophen (*CRX) 5-325 MG TABLET 1 TAB PO (00:19)
[2021-03-16] MEDS: HYDROmorphone HCL INJ (*CRX) 2 MG/ML VIAL IV PUSH ×4 (03:46→21:27)
[2021-03-16] MEDS: hydrALAZINE HCL 20 MG/ML VIAL 10 MG IV PUSH ×3 (03:49→18:06)
[2021-03-16 04:22] LABS: Basophils Absolute Auto 0.1 K/mm3 (0.0-0.1); Basophils Percent Auto 0.7 % (0.2-1.2); Eosinophils Absolute Auto 0.2 K/mm3 (0-0.3); Eosinophils Percent Auto 2.4 % (0-4.4); Hematocrit 29.9 % (42.0-52.0); Hemoglobin 8.3 g/dL (14.0-18.0); Immature Granulocyte Absolute 0.17 K/mm3 (0.00-0.031); Immature Granulocyte Percent A 2.5 % (0-0.5); Lymphocytes Absolute Auto 1.26 K/mm3 (0.9-3.2); Lymphocytes Percent Auto 18.9 % (18.3-44.2); Mean Corpuscular HGB Conc 27.8 g/dl (32-36); Mean Corpuscular Volume 75.5 fl (80-100); Mean Platelet Volume 9.6 fl (7.4-10.4); Monocytes Absolute Auto 0.6 K/mm3 (0.1-0.6); Monocytes Percent Auto 9.1 % (2.6-8.5); Neutrophils Absolute Auto 4.4 K/mm3 (1.3-6.7); Neutrophils Percent Auto 66.4 % (45.5-73.1); Nucleated Red Blood Cells Perc 0.4 % (0.0-0.2); Platelet Count Result 247 k/mm3 (150-375); Red Blood Count 3.96 M/mm3 (4.6-6.20); Red Cell Distribution Width 19.4 % (11.5-14.5); White Blood Count 6.7 K/mm3 (4.5-10.0)
[2021-03-16 04:23] LABS: Hypochromasia 1+ (NORMAL); Platelet Estimate Adequate (Adequate)
[2021-03-16 04:41] LABS: Alanine Aminotransferase 78 U/L (4-50); Albumin Level 3.6 g/dL (3.5-5.1); Alkaline Phosphatase 125 U/L (38-126); Anion Gap 12 mmol/L (8-16); Aspartate Amino Transferase 56 U/L (17-59); Bilirubin,Total 0.6 mg/dL (0.2-1.3); Blood Urea Nitrogen 5 mg/dL (9-20); Calcium 9.2 mg/dL (8.4-10.2); Carbon Dioxide 23 mmol/L (22-30); Chloride 103 mmol/L (98-107); Estimated CRCL calculation 152 ml/min; Estimated Glomerular Filt Rate > 60; Glucose 97 mg/dL (65-110); Potassium 3.5 mmol/L (3.4-5.0); Sodium 138 mmol/L (137-145)
[2021-03-16] MEDS: METOPROLOL SUCCINATE EXT REL 100 MG TABCR PO ×2 (08:43→21:20)
[2021-03-16 08:45] LABS: Glucose Point of Care 95 mg/dl (65-105)
[2021-03-16] MEDS: PANTOPRAZOLE SODIUM IV 40 MG VIAL IV PUSH ×2 (08:50→21:21)
[2021-03-16] MEDS: LOSARTAN POTASSIUM 50 MG TABLET PO (09:09)
[2021-03-16] MEDS: amLODIPine BESYLATE 5 MG TABLET PO (09:09)
[2021-03-16] MEDS: THIAMINE HCL 200 MG/2 ML VIAL 100 MG IV PUSH (09:10)
[2021-03-16] MEDS: ENOXAPARIN 40 MG/0.4 ML SYRINGE SUB-Q (09:10)
--- NOTE | 2021-03-16 09:15 | PM.IMPN ---
Progress Note: A&P Assessment and Plan (1) Acute alcoholic pancreatitis: Code(s): K85.20 - Alcohol induced acute pancreatitis without necrosis or infection Status: Acute (2) SIRS (systemic inflammatory response syndrome): Code(s): R65.10 - Systemic inflammatory response syndrome (SIRS) of non-infectious origin without acute organ dysfunction Status: Acute (3) Lactic acidosis: Code(s): E87.2 - Acidosis Status: Acute (4) Acute hyperglycemia: Code(s): R73.9 - Hyperglycemia, unspecified Status: Acute (5) Essential hypertension: Code(s): I10 - Essential (primary) hypertension Status: Acute (6) Chronic alcohol abuse: Code(s): F10.10 - Alcohol abuse, uncomplicated Status: Acute (7) Obstructive sleep apnea: Code(s): G47.33 - Obstructive sleep apnea (adult) (pediatric) Status: Acute (8) Elevated liver enzymes: Code(s): R74.8 - Abnormal levels of other serum enzymes Status: Acute Additional Plan acute alcoholic pancreatitis SIRS Severe lactic acidosis Hyperglycemia Hypertension BETTIE on CPAP Hypo magnesemia status post gastric bypass 2010 Chronic alcohol abuse planning to go [employer] for [employer] plan: Continue aggressive IV hydration Replace lytes Recheck lactic acid level And sliding scale insulin for hyperglycemia WBC count slightly elevated today watch for any fever if worsens may need IV antibiotics NPO except ice chips Labs in a.m. 03/12: Lactic acid has normalized his however tachycardic in 140s to 150s will get an EKG looks sinus tachycardia on telemetry. Will restart his oral metoprolol. Blood pressure running high will start his amlodipine back. Continue NPO except meds may have ice chips . He is febrile this morning. Could be from acute pancreatitis self however will monitor his cultures empirically started On imipenem. With hemoglobin A1c 6.8 suggestive of diabetes mellitus. WBC count stable today blood sugar running at goal more IV fluid to 150 cc an hour no edema noted and no crackles in lung examination her signs of any fluid overload replace magnesium labs in a.m. 03/13: Remains tachycardic. Will increase metoprolol to 100 mg per day. Will start him on clear liquids today WBC count is improved will slow down his IV fluid to 100 cc an hour. LFTs has worsened will get ultrasound right upper quadrant to further evaluate. On imipenem empirically no further fevers Recheck his LFTs in the morning lipase level has normalized now 03/14: Tolerated clear liquids. Will advance to full liquid today. Ultrasound right upper quadrant with acute pancreatitis. Remains afebrile. LFTs improved today. 03/15: Will advance to regular diet today. Will discontinue his IV fluids. Increase metoprolol to twice a day. Labs reviewed and LFTs has improved. Continue imipenem for until tomorrow. Remains afebrile. Replace potassium mildly tachycardic still present. Restart his losartan for his hypertension. Labs in a.m. 03/16: Vital Signs better. LFTs almost normalized now. Will stop his antibiotics. Will increase the dose of oral pain medication. Continue IV p.r.n. for now. If oral pain medication controls the pain will plan for discharge home in the morning. Tolerating general diet with some mild nausea which is improving p.r.n. antinausea medication. Recheck labs in the morning Subjective Date/time seen: 03/16/21 09:15 Interval history: No overnight events. Feels about the same Today. He had general diet last night which went down well. He felt a little nauseous this morning with his breakfast. Regular bowel movement. No fever or chills. Oral pain medication does not last long. He is still getting IV pain medication as needed Review of Systems Review of Systems: All systems reviewed & are unremarkable except as noted in HPI and below Exam Narrative: Exam Narrative: General: obese, not in a
[2021-03-16 12:11] LABS: Glucose Point of Care 112 mg/dl (65-105)
[2021-03-16] MEDS: HYDROcodone/acetaminophen (*CRX) 7.5-325 MG TABLET 1 TAB PO (12:11)
[2021-03-16] MEDS: HYDROcodone/acetaminophen (*CRX) 10-325 MG TABLET 1 TAB PO (18:50)
[2021-03-17] VITALS (14 sets, daily range): BP systolic 122–177; BP diastolic 70–94; PULSE 77–130; RESP 16–22; TEMP 35.9–36.4; O2SAT 69–100; BMI 47.0
[2021-03-17] MEDS: HYDROcodone/acetaminophen (*CRX) 10-325 MG TABLET 1 TAB PO (00:38)
[2021-03-17] MEDS: HYDROmorphone HCL INJ (*CRX) 2 MG/ML VIAL IV PUSH (03:35)
[2021-03-17] MEDS: hydrALAZINE HCL 20 MG/ML VIAL 10 MG IV PUSH ×2 (03:40→20:52)
--- NOTE | 2021-03-17 04:02 | PC.NURSE ---
Pt's behavior started changing throughout night cleaner. At approximately 0200 the nurse aide entered the pt's room and the pt was actively trying to open the windows. The facilities locator redirected the pt and reminded him he is at the hospital and helped him back into bed. I entered the pt's room some time after, after he called for pain medication and asked him if he was getting any sleep and stated he had medication available for insomnia. The pt stated he didn't want it now but after he took his kid to daycare he would take it then. I reminded the pt he was in the hospital and asked if he was talking about after he gets discharged. There was a strange odor coming from the pt's room and I called laborer hide house Grecia who came to the floor to investigate. As she was walking towards the pt's room, the pt met her out in the hallway. supervisor conditioning yard asked the pt where he was going and he stated he was waiting for his who was at the nurses station. The pt was stumbling while walking. We reminded the pt again he was at the hospital and directed the pt back to bed and asked him to put his cpap mask back on and get some rest. I instructed the pt that he needed to stay in bed and call if he would like up and placed the bed alarm on. I will continue to monitor the pt.
[2021-03-17 05:40] LABS: Basophils Absolute Auto 0.1 K/mm3 (0.0-0.1); Basophils Percent Auto 0.8 % (0.2-1.2); Eosinophils Absolute Auto 0.2 K/mm3 (0-0.3); Eosinophils Percent Auto 1.9 % (0-4.4); Hematocrit 33.8 % (42.0-52.0); Hemoglobin 9.4 g/dL (14.0-18.0); Immature Granulocyte Absolute 0.37 K/mm3 (0.00-0.031); Immature Granulocyte Percent A 4.3 % (0-0.5); Lymphocytes Absolute Auto 1.36 K/mm3 (0.9-3.2); Lymphocytes Percent Auto 15.9 % (18.3-44.2); Mean Corpuscular HGB Conc 27.8 g/dl (32-36); Mean Corpuscular Hemoglobin 21.3 pg (26-34); Mean Corpuscular Volume 76.5 fl (80-100); Mean Platelet Volume 9.9 fl (7.4-10.4); Monocytes Absolute Auto 0.8 K/mm3 (0.1-0.6); Monocytes Percent Auto 8.9 % (2.6-8.5); Neutrophils Absolute Auto 5.8 K/mm3 (1.3-6.7); Neutrophils Percent Auto 68.2 % (45.5-73.1); Nucleated Red Blood Cells Perc 0.4 % (0.0-0.2); Platelet Count Result 332 k/mm3 (150-375); Red Blood Count 4.42 M/mm3 (4.6-6.20); White Blood Count 8.5 K/mm3 (4.5-10.0)
[2021-03-17 05:55] LABS: Alanine Aminotransferase 65 U/L (4-50); Albumin Level 4.2 g/dL (3.5-5.1); Alkaline Phosphatase 130 U/L (38-126); Anion Gap 15 mmol/L (8-16); Aspartate Amino Transferase 50 U/L (17-59); Bilirubin,Total 0.6 mg/dL (0.2-1.3); Blood Urea Nitrogen 6 mg/dL (9-20); Calcium 9.4 mg/dL (8.4-10.2); Carbon Dioxide 22 mmol/L (22-30); Chloride 101 mmol/L (98-107); Estimated CRCL calculation 151 ml/min; Estimated Glomerular Filt Rate > 60; Glucose 104 mg/dL (65-110); Potassium 3.6 mmol/L (3.4-5.0); Sodium 138 mmol/L (137-145)
--- NOTE | 2021-03-17 06:10 | PC.NURSE ---
pt has ripped off his telemetry multiple times. the bereavement coordinator found the pt turning off the bed alarm. I stayed and spoke the pt and he is confused about still being in the hospital. Pt think he is in his apartment pt also thinks his and [id number] are here in the hospital talking about him. Pt is anxious and wants his pain medication and sleep pills. I told the pt we need to continue to monitor him. I notified Dr. Cervantes of the pt's change in behavior and mentation. I was told to continue to monitor the pt.
[2021-03-17 07:42] LABS: Glucose Point of Care 95 mg/dl (65-105)
[2021-03-17] MEDS: THIAMINE HCL 200 MG/2 ML VIAL 100 MG IV PUSH (08:14)
[2021-03-17] MEDS: ENOXAPARIN 40 MG/0.4 ML SYRINGE SUB-Q (08:14)
[2021-03-17] MEDS: amLODIPine BESYLATE 5 MG TABLET PO (08:14)
[2021-03-17] MEDS: LOSARTAN POTASSIUM 50 MG TABLET PO (08:14)
[2021-03-17] MEDS: METOPROLOL SUCCINATE EXT REL 100 MG TABCR PO ×2 (08:15→20:52)
[2021-03-17] MEDS: PANTOPRAZOLE SODIUM IV 40 MG VIAL IV PUSH ×2 (08:15→20:52)
[2021-03-17 10:09] LABS: Lactic Acid Reflex 0.8 mmol/L (0.7-2.1)
[2021-03-17 10:18] LABS: Alveolar/Arterial O2 Gradient 61.2 mmHg; Base Excess ABG -3.5 mEq/l (+/-2.0); HCO3 ABG 20.1 mEq/l (22.0-26.0); Oxygen Content ABG 13.9 %vol (16.0-22.0); Oxygen Saturation ABG 95.3 % (95.0-100.0); Oxyhemoglobin 92.5 % THb (90.0-100.0); PO2 FiO2 Ratio Arterial Blood 3.04 %; Total Hemoglobin 10.6 g/dL (12.0-18.0); pH ABG 7.429 (7.350-7.450)
[2021-03-17 10:19] LABS: Device ROOM AIR; Fractional Inspired Oxygen 21 %; Modified Allen's Test Pass; Site Drawn RIGHT RADIAL
--- NOTE | 2021-03-17 10:52 | PM.IMPN ---
Progress Note: A&P Assessment and Plan (1) Acute alcoholic pancreatitis: Code(s): K85.20 - Alcohol induced acute pancreatitis without necrosis or infection Status: Acute (2) SIRS (systemic inflammatory response syndrome): Code(s): R65.10 - Systemic inflammatory response syndrome (SIRS) of non-infectious origin without acute organ dysfunction Status: Acute (3) Lactic acidosis: Code(s): E87.2 - Acidosis Status: Acute (4) Acute hyperglycemia: Code(s): R73.9 - Hyperglycemia, unspecified Status: Acute (5) Essential hypertension: Code(s): I10 - Essential (primary) hypertension Status: Acute (6) Chronic alcohol abuse: Code(s): F10.10 - Alcohol abuse, uncomplicated Status: Acute (7) Obstructive sleep apnea: Code(s): G47.33 - Obstructive sleep apnea (adult) (pediatric) Status: Acute (8) Elevated liver enzymes: Code(s): R74.8 - Abnormal levels of other serum enzymes Status: Acute Additional Plan acute alcoholic pancreatitis SIRS Severe lactic acidosis Hyperglycemia Hypertension BETTIE on CPAP Hypo magnesemia status post gastric bypass 2010 Chronic alcohol abuse planning to go [employer] for [employer] plan: Continue aggressive IV hydration Replace lytes Recheck lactic acid level And sliding scale insulin for hyperglycemia WBC count slightly elevated today watch for any fever if worsens may need IV antibiotics NPO except ice chips Labs in a.m. 03/12: Lactic acid has normalized his however tachycardic in 140s to 150s will get an EKG looks sinus tachycardia on telemetry. Will restart his oral metoprolol. Blood pressure running high will start his amlodipine back. Continue NPO except meds may have ice chips . He is febrile this morning. Could be from acute pancreatitis self however will monitor his cultures empirically started On imipenem. With hemoglobin A1c 6.8 suggestive of diabetes mellitus. WBC count stable today blood sugar running at goal more IV fluid to 150 cc an hour no edema noted and no crackles in lung examination her signs of any fluid overload replace magnesium labs in a.m. 03/13: Remains tachycardic. Will increase metoprolol to 100 mg per day. Will start him on clear liquids today WBC count is improved will slow down his IV fluid to 100 cc an hour. LFTs has worsened will get ultrasound right upper quadrant to further evaluate. On imipenem empirically no further fevers Recheck his LFTs in the morning lipase level has normalized now 03/14: Tolerated clear liquids. Will advance to full liquid today. Ultrasound right upper quadrant with acute pancreatitis. Remains afebrile. LFTs improved today. 03/15: Will advance to regular diet today. Will discontinue his IV fluids. Increase metoprolol to twice a day. Labs reviewed and LFTs has improved. Continue imipenem for until tomorrow. Remains afebrile. Replace potassium mildly tachycardic still present. Restart his losartan for his hypertension. Labs in a.m. 03/16: Vital Signs better. LFTs almost normalized now. Will stop his antibiotics. Will increase the dose of oral pain medication. Continue IV p.r.n. for now. If oral pain medication controls the pain will plan for discharge home in the morning. Tolerating general diet with some mild nausea which is improving p.r.n. antinausea medication. Recheck labs in the morning 03/17: Acute encephalopathy evaluated with CT head which came back negative ABG and his labs are unremarkable could be related to the pain medication. Will hold his pain medication today and monitor with [facility] protocol if he is going to alcohol withdrawal. I think it is with a past alcohol withdrawal period For him. His anemia is stable and improved LFTs improved WBC count remains normal Subjective Date/time seen: 03/17/21 10:52 Interval history: patient more confused today per nursing staff. He has not slept all night. He report
--- NOTE | 2021-03-17 11:41 | PCNSR ---
On 03/17/21, the student,Char Partida, provided care and completed [facility] documentation on this patient. I have reviewed the student's documentation and agree with the findings.
[2021-03-17 14:34] LABS: Glucose Point of Care 107 mg/dl (65-105)
[2021-03-17] MEDS: LORazepam (*CRX) 0.5 MG TABLET PO (14:56)
[2021-03-17 16:52] LABS: Glucose Point of Care 91 mg/dl (65-105)
[2021-03-17] MEDS: chlordiazePOXIDE (*CRX) 25 MG CAPSULE PO ×2 (17:48→23:54)
[2021-03-17] MEDS: HYDROcodone/acetaminophen (*CRX) 5-325 MG TABLET 1 TAB PO ×2 (17:48→23:54)
[2021-03-17] MEDS: ONDANSETRON INJ 4 MG/2 ML VIAL IV PUSH (20:57)
[2021-03-18] VITALS: BP 135/78; PULSE 99; RESP 20; TEMP 36.2; O2SAT 98
[2021-03-18 04:00] VITALS: BP 136/75; PULSE 82; PULSE 95; RESP 18; TEMP 35.8; O2SAT 100
[2021-03-18] MEDS: HYDROcodone/acetaminophen (*CRX) 5-325 MG TABLET 1 TAB PO ×3 (04:59→17:25)
[2021-03-18] MEDS: chlordiazePOXIDE (*CRX) 25 MG CAPSULE PO ×3 (05:31→17:15)
[2021-03-18 05:48] LABS: Alanine Aminotransferase 45 U/L (4-50); Albumin Level 3.6 g/dL (3.5-5.1); Alkaline Phosphatase 94 U/L (38-126); Anion Gap 11 mmol/L (8-16); Aspartate Amino Transferase 33 U/L (17-59); Bilirubin,Total 0.5 mg/dL (0.2-1.3); Blood Urea Nitrogen 7 mg/dL (9-20); Carbon Dioxide 24 mmol/L (22-30); Chloride 106 mmol/L (98-107); Estimated CRCL calculation 135 ml/min; Estimated Glomerular Filt Rate > 60; Glucose 96 mg/dL (65-110); Magnesium 2.2 mg/dL (1.6-2.3); Potassium 3.6 mmol/L (3.4-5.0); Sodium 141 mmol/L (137-145)
[2021-03-18 05:54] LABS: Basophils Absolute Auto 0.1 K/mm3 (0.0-0.1); Basophils Percent Auto 1.6 % (0.2-1.2); Eosinophils Absolute Auto 0.1 K/mm3 (0-0.3); Eosinophils Percent Auto 1.8 % (0-4.4); Hemoglobin 8.6 g/dL (14.0-18.0); Immature Granulocyte Absolute 0.33 K/mm3 (0.00-0.031); Immature Granulocyte Percent A 5.3 % (0-0.5); Mean Corpuscular HGB Conc 27.7 g/dl (32-36); Mean Corpuscular Hemoglobin 20.9 pg (26-34); Mean Corpuscular Volume 75.2 fl (80-100); Mean Platelet Volume 9.6 fl (7.4-10.4); Monocytes Absolute Auto 0.7 K/mm3 (0.1-0.6); Neutrophils Absolute Auto 3.5 K/mm3 (1.3-6.7); Neutrophils Percent Auto 56.3 % (45.5-73.1); Platelet Count Result 336 k/mm3 (150-375); Red Blood Count 4.12 M/mm3 (4.6-6.20); Red Cell Distribution Width 20.4 % (11.5-14.5); White Blood Count 6.3 K/mm3 (4.5-10.0)
[2021-03-18 06:50] LABS: Anisocytosis 1+ (NORMAL); Hypochromasia 1+ (NORMAL); Platelet Estimate Adequate (Adequate)
[2021-03-18 08:00] VITALS: BP 141/82; PULSE 82; PULSE 84; RESP 18; TEMP 36.2; O2SAT 97
[2021-03-18 09:32] VITALS: PULSE 96
[2021-03-18] MEDS: LOSARTAN POTASSIUM 50 MG TABLET PO (09:32)
[2021-03-18] MEDS: amLODIPine BESYLATE 5 MG TABLET PO (09:32)
[2021-03-18] MEDS: POTASSIUM CHLORIDE 20 MEQ TABLET 40 MEQ PO (09:32)
[2021-03-18] MEDS: METOPROLOL SUCCINATE EXT REL 100 MG TABCR PO (09:32)
[2021-03-18] MEDS: THIAMINE HCL 200 MG/2 ML VIAL 100 MG IV PUSH (09:33)
[2021-03-18] MEDS: ENOXAPARIN 40 MG/0.4 ML SYRINGE SUB-Q (09:33)
[2021-03-18] MEDS: PANTOPRAZOLE SODIUM IV 40 MG VIAL IV PUSH (09:33)
--- NOTE | 2021-03-18 10:45 | PM.DS ---
DS: Admitting Diagnosis Admitting Diagnosis Admitting Diagnosis: abdominal pain DS: Discharge Diagnosis Discharge Diagnosis (1) Opioid dependence with current use: Code(s): F11.20 - Opioid dependence, uncomplicated Status: Acute (2) Acute alcoholic pancreatitis: Code(s): K85.20 - Alcohol induced acute pancreatitis without necrosis or infection Status: Acute (3) SIRS (systemic inflammatory response syndrome): Code(s): R65.10 - Systemic inflammatory response syndrome (SIRS) of non-infectious origin without acute organ dysfunction Status: Acute (4) Lactic acidosis: Code(s): E87.2 - Acidosis Status: Acute (5) Acute hyperglycemia: Code(s): R73.9 - Hyperglycemia, unspecified Status: Acute (6) Essential hypertension: Code(s): I10 - Essential (primary) hypertension Status: Acute (7) Chronic alcohol abuse: Code(s): F10.10 - Alcohol abuse, uncomplicated Status: Acute (8) Obstructive sleep apnea: Code(s): G47.33 - Obstructive sleep apnea (adult) (pediatric) Status: Acute (9) Elevated liver enzymes: Code(s): R74.8 - Abnormal levels of other serum enzymes Status: Acute DS: Summary Hospital Course Reason for hospitalization: 41-year-old with past medical history of obesity, chronic alcohol abuse, narcotic abuse, essential hypertension, and chronic pancreatitis who presented to the ER with abdominal pain. The patient initially told the ER staff that he drank a half a pt of alcohol a day and his last drink was 8 hours prior to coming to the ER. He told nursing staff that he had quit drinking a long time ago. When nursing staff point out to the patient that his alcohol level is currently above the legal limit for intoxication the patient admitted that he drank a couple of hours prior to coming to the ER and that he drinks about 2 pt of alcohol a day. The patient's reports that the patient will usually drink 2- 12 packs of beer a day but has been on hard liquor for the most part for the last year. She agrees that he probably drinks about 2 pt of alcohol a day on average but over the last 5 days the patient has been binge drinking up to 2 fifths of hard liquor a day as he is anticipating getting a shot from chest not to help him stop drinking alcohol. So he wanted to drink as much as he possibly could before the injection on 03/12/2021. The patient states that he has been having diarrhea for the last 2-3 days 5-6 episodes a day. The diarrhea is liquid and brown. Denies any hematochezia or melena. He has been having nausea and vomiting for 2 days with dry heaves over the last 24 hours. His nausea is accompanied by epigastric abdominal pain that radiates down the left side of his abdomen into his groin. His pain also radiates out through to his back. He reports the pain is a 10/10 in intensity and aching even after Dilaudid. He reports that he is drank 2 pt of alcohol a day for the last year. Prior to that he drank beer heavily. He is considered himself an alcoholic for the last 2 years. Since he started drinking alcohol again he has regained all of his weight from prior to his bariatric surgery. He reports that he is supposed to go to chest not on 03/12/2021 for the shot to treat his alcohol addiction. He reports that he has never went to alcohol withdrawal. At the time of my evaluation the patient's CIWA scores 5 he is has palpable tremor but no visible tremor, he has some mild sweating, he feels mildly anxious and is having some nausea. he was having some sweats earlier in the day that he associates with his pain. He denies any fevers or chills. He denies any headache or visual changes. He has not had any auditory or visual hallucinations or tactile hallucinations. He has had some shortness of breath but he associates this with his abdominal pain is in makes his pain worse if he takes a deeper breath. He has a history of CHF
[2021-03-18 12:00] VITALS: BP 146/73; PULSE 79; RESP 18; TEMP 35.9; O2SAT 96
--- NOTE | 2021-03-18 15:13 | PCRCNOTE ---
PT HOME CP[facility] IS [facility], THEY WILL BE BRINGING THE PT A NEW CPAP UNIT HERE TO HOSPITAL ROOM PRIOR TO D/C, O2 AT 2L BLEED IN NEEDED WITH CPAP. ORDER WRITTEN AND PT WILL BE SET UP IN THE HOME WITH THE REQUIRED O2 BLEED IN SUPPLIES ONCE HE IS HOME. [facility] CONTACT IS YOVANY AT [phone]
[2021-03-18 16:00] VITALS: BP 118/64; PULSE 96; RESP 18; TEMP 36.1; O2SAT 99
== END 2021-03-18 18:30 | disposition home or self-care (01) | DRG 439 ==
LOC: ANHED 21:46 → ANHIMU 03-11 00:44 → ANH2MED 03-15 12:23 → ANHIMU 03-20 10:20
PROVIDERS: Emergency Medicine; Internal Medicine; Admitting Provider Internal Medicine; Emergency Provider General Practice; PCP Family Medicine; Visit Provider Family Medicine
DX: K85.20 Alcohol induced acute pancreatitis without necrosis or infection (principal); E87.2 Acidosis; G93.40 Encephalopathy, unspecified; R65.10 Systemic inflammatory response syndrome (SIRS) of non-infectious origin without acute organ dysfunction; Z68.42 Body mass index [BMI] 45.0-49.9, adult; F11.20 Opioid dependence, uncomplicated; E66.9 Obesity, unspecified; F10.10 Alcohol abuse, uncomplicated; K86.0 Alcohol-induced chronic pancreatitis; G47.33 Obstructive sleep apnea (adult) (pediatric); I10 Essential (primary) hypertension; R73.9 Hyperglycemia, unspecified; E83.42 Hypomagnesemia; R74.8 Abnormal levels of other serum enzymes; Z98.84 Bariatric surgery status; Z87.442 Personal history of urinary calculi; Z79.899 Other long term (current) drug therapy
CPT/HCPCS: 36415; 36600; 70450; 71045; 71046; 74177; 76705; 80048; 80053; 80076; 80307; 81001; 82607; 82746; 82805; 82948; 83036; 83605; 83615; 83690; 83735; 83880; 84100; 84145; 84425; 84443; 84484; 85025; 85027; 85610; 85730; 86140; 93005; 94660; 94762; 96361; 96374; 96375; 96376; 99285; A9270; C9113; J0131; J0360; J0743; J1170; J1650; J1815; J2405; J3411; J3475; J7030; J7120; Q9967

== ENCOUNTER 2021-06-25 14:29 | Outpatient (CLI) | payer OTHER, SELFPAY | END 2021-06-25 14:30 | disposition home or self-care (01) | LOC: ANHSURGERY 14:34 | PROVIDERS: PCP Family Medicine; Visit Provider Surgery | DX: K40.20 Bilateral inguinal hernia, without obstruction or gangrene, not specified as recurrent (principal); Z01.818 Encounter for other preprocedural examination | CPT/HCPCS: 36415; 86850; 86900; 86901 ==